=== PATIENT | male | born 1935 | race Caucasian/White ===

== ENCOUNTER 2020-11-25 16:36 | Inpatient (IN) | payer OTHER ==
[~2020-11-25] VITALS: Ht 170.1 cm; Wt 70.1 kg
[2020-11-25] MEDS ORDERED: BAYER ASPIRIN C81 MG PO (18:07)
[2020-11-25] MEDS ORDERED: LOPRESSOR50 M1 PO (18:07)
[2020-11-25] MEDS ORDERED: CRESTOR10 M1 PO (18:08)
[2020-11-25] MEDS ORDERED: OSENI 12.5-151 EACH PO (18:09)
[2020-11-25] MEDS ORDERED: VITAMIN D325 MCG PO (18:10)
[2020-11-25] MEDS ORDERED: METFORMIN XR500 MG PO (18:11)
[2020-11-25] MEDS ORDERED: ZESTORETIC 20-1 EACH PO (18:11)
[2020-11-25] MEDS ORDERED: GLIPIZIDE10 M2 PO (18:12)
[2020-11-25] MEDS ORDERED: CLONIDINE HYDR0.2 MG PO (18:12)
[2020-11-25 19:35] VITALS: BP 162/97
[2020-11-26 06:19] LABS: BASO % 0.4 % (0.0-1.0); EOS % 0.2 % (1.0-4.0); HEMATOCRIT 42.8 % (42.0-52.0); LYMPH # 1.4 10*3/uL (1.3-4.4); LYMPH % 12.7 % (27.0-41.0); MEAN CELL VOLUME 88.6 fl (80.0-94.0); MEAN CORPUSCULAR HGB 28.6 pg (27.0-31.0); MEAN CORPUSCULAR HGB CONC 32.2 g/dl (33.0-37.0); MEAN PLATELET VOLUME 12.1 fl (9.6-12.3); MONO % 8.4 % (3.0-9.0); NEUT # 8.8 10*3/uL (2.3-7.9); NEUT % 77.7 % (47.0-73.0); PLATELET COUNT AUTOMATED 169 10*3/uL (130-400); RED BLOOD COUNT 4.83 10*6/uL (4.50-5.90); RED CELL DISTRI WIDTH 13.8 % (0-14.5); WHITE BLOOD COUNT 11.3 10*3/uL (4.8-10.8)
[2020-11-26 06:45] LABS: ALBUMIN 3.5 gm/dl (3.1-4.5); BUN 15 mg/dl (7-24); CHLORIDE 104 mmol/L (98-107); CHOLESTEROL 139 mg/dL (<200); CREATININE 1.11 mg/dL (0.70-1.30); HDL CHOLESTEROL 57 mg/dl (40-60); LDL CHOLESTEROL 47 mg/dL (9-159); POTASSIUM 3.8 mmol/L (3.5-5.1); SGOT/AST 20 IU/L (3-35); SGPT/ALT 17 U/L (12-78); SODIUM 140 mmol/L (136-145); TOTAL PROTEIN 7.4 gm/dL (6.4-8.2); TRIGLYCERIDES 175 mg/dl (<150); VLDL CHOLESTEROL 35 mg/dL (6-40)
[2020-11-26 06:52] LABS: ALKALINE PHOSPHATASE 81 U/L (45-117)
[2020-11-26 07:39] VITALS: BP 138/59
[2020-11-26 07:52] LABS: VITAMIN D, 25-HYDROXY 24.8 ng/mL (30-100)
[2020-11-26 12:44] LABS: BILIRUBIN Negative (Negative); BLOOD Trace-Lysed (Negative); CLARITY Clear (Clear); COLOR Dark Yellow (Yellow); GLUCOSE 3+ (Negative); KETONE 2+ (Negative); LEUKO ESTERASE Trace (Negative); NITRITE Negative (Negative); SPECIFIC GRAVITY >= 1.030 (1.001-1.030)
[2020-11-26 13:15] LABS: BACTERIA 1+; MUCOUS 2+; RBC 16-20 rbc/hpf (0-2)
[2020-11-26 20:00] VITALS: BP 129/79
[2020-11-27 07:59] VITALS: BP 112/54
[2020-11-27 20:00] VITALS: BP 122/63
[2020-11-27 20:10] VITALS: BP 122/70
[2020-11-28 04:54] VITALS: BP 140/72
[2020-11-28 19:54] VITALS: BP 135/69
[2020-11-29 07:29] VITALS: BP 122/66
[2020-11-29 20:00] VITALS: BP 126/68
[2020-11-30 07:34] VITALS: BP 120/61
[2020-11-30 20:00] VITALS: BP 120/61; BP 127/69
[2020-12-01 07:47] VITALS: BP 125/69
[2020-12-01 20:00] VITALS: BP 129/52
[2020-12-01 20:30] VITALS: BP 126/62
[2020-12-02 06:32] LABS: ALBUMIN 2.6 gm/dl (3.1-4.5); ALKALINE PHOSPHATASE 57 U/L (45-117); BUN 37 mg/dl (7-24); CHLORIDE 110 mmol/L (98-107); CREATININE 0.93 mg/dL (0.70-1.30); SGOT/AST 11 IU/L (3-35); SGPT/ALT 17 U/L (12-78); SODIUM 145 mmol/L (136-145)
[2020-12-02 07:40] VITALS: BP 144/58
[2020-12-02 20:00] VITALS: BP 104/52
[2020-12-03 07:47] VITALS: BP 133/58
[2020-12-03 20:00] VITALS: BP 123/54
[2020-12-04 07:24] VITALS: BP 138/52
[2020-12-04 19:11] VITALS: BP 115/55
[2020-12-05 07:11] VITALS: BP 137/55
[2020-12-05 19:09] VITALS: BP 124/47
[2020-12-06 07:44] VITALS: BP 124/57
[2020-12-06] MEDS ORDERED: RIVASTIGMINE1 EAC2 T (10:08)
[2020-12-06] MEDS ORDERED: RISPERIDONE M-TA1 MG BC (10:08)
[2020-12-06] MEDS ORDERED: DIVALPROEX SOD250 MG PO (10:08)
[2020-12-06] MEDS ORDERED: DIVALPROEX SOD500 MG PO (10:08)
[2020-12-06] MEDS ORDERED: NAMENDA-5 PO (10:08)
[2020-12-06] MEDS ORDERED: CIPROFLOXACIN500 M4 PO (13:01)
== END 2020-12-06 14:10 | DRG 883 ==
LOC: 3N 16:36
PROVIDERS: Internal Medicine; Psychiatry & Neurology Psychiatry; ADMIT Psychiatry & Neurology Psychiatry; ATTEND Psychiatry & Neurology Psychiatry
DX: F63.81 Intermittent explosive disorder (principal); F02.81 Dementia in other diseases classified elsewhere, unspecified severity, with behavioral disturbance; N30.00 Acute cystitis without hematuria; G30.9 Alzheimer's disease, unspecified; E11.9 Type 2 diabetes mellitus without complications; E78.5 Hyperlipidemia, unspecified; D64.9 Anemia, unspecified; I10 Essential (primary) hypertension; E55.9 Vitamin D deficiency, unspecified; F41.9 Anxiety disorder, unspecified; R00.0 Tachycardia, unspecified; I25.10 Atherosclerotic heart disease of native coronary artery without angina pectoris; I25.2 Old myocardial infarction; Z79.82 Long term (current) use of aspirin; Z79.899 Other long term (current) drug therapy; Z79.84 Long term (current) use of oral hypoglycemic drugs; Z20.822 Contact with and (suspected) exposure to COVID-19